=== PATIENT | male | born 2000 | race Caucasian/White ===

== ENCOUNTER → 2021-06-03 | Outpatient (CLI) | payer SELFPAY ==
[2021-06-03 16:01] LABS: BASO % 0.5 % (0.0-2.0); EOS # 0.2 K/mm3 (0.0-0.7); EOS % 5.4 % (0.0-4.0); GRAN # 1.4 K/mm3 (1.4-6.5); GRAN % 37.3 % (42.2-75.2); HEMATOCRIT 39.9 % (42.0-52.0); HEMOGLOBIN 13.7 g/dl (13.5-18.0); LYMPH # 1.6 K/mm3 (1.2-3.4); LYMPH % 44.3 % (20.0-51.0); MEAN CELL VOLUME 83 fl (80.0-100.0); MEAN CORPUSCULAR HEMOGLOBIN 29 pg (27-31); MEAN CORPUSCULAR HGB CONC 34 g/dl (33.0-37.0); MEAN PLATELET VOLUME 8.8 fl (7.4-10.4); MONO # 0.5 K/mm3 (0.1-0.6); MONO % 12.2 % (1.7-9.3); PLATELET COUNT 210 K/mm3 (130-400); REDCELL DISTRIBUTION WIDTH-CV 12.5 % (11.5-14.5)
[2021-06-03 16:36] LABS: THYROID STIMULATING HORMONE 0.585 uIU/mL (0.350-4.940)
[2021-06-04 13:05] LABS: EBV IGM AB Negative (())
== END ==
LOC: COL.LAB 15:33
PROVIDERS: Otolaryngology
DX: R53.83 Other fatigue (principal)